=== PATIENT | female | born 1990 | race Caucasian/White ===

== ENCOUNTER 2018-06-01 15:40 | Outpatient (CLI) | payer MEDICAID ==
[~2018-06-01] VITALS: Ht 157.5 cm; Wt 83.0 kg
[2018-06-01 17:09] VITALS: Ht 157.5 cm; Wt 83.0 kg
[2018-06-01 17:11] VITALS: BP 100/59; PULSE 86; RESP 18
[2018-06-01] MEDS ORDERED: PREN-93 PO (17:13)
--- NOTE | 2018-06-02 13:35 | PN ---
Triage Information Date/Time late entry for service rendered on 06/01/18 Reason for visit: Uterine contractions Weeks of Gestation 22w3d /Para Diabetes: none Hypertention: none Objective Vital Signs Date Temp Pulse Resp B/P (MAP) Pulse Ox O2 O2 Flow FiO2 Time Delivery Rate 06/01/18 98.6 86 18 100/59 Room Air 17:11 (73) Heart Rate: 140's Heart Rate Comments adequate for GA Contractions: >10 Minutes Apart Results/Medications Results 24 hrs Laboratory Tests Test 06/01/18 16:30 Urine Color YELLOW Urine Clarity SLIGHTLY CLOUDY A Urine pH 6.0 Urine Specific [place] 1.025 Urine Ketones 1+ H Urine Nitrite NEGATIVE Urine Bilirubin NEGATIVE Urine Urobilinogen NEGATIVE Urine Leukocyte Esterase TRACE A Urine Microscopic RBC 0 Urine Microscopic WBC 1 Urine Mucus FEW A Urine Hemoglobin NEGATIVE Urine Glucose NEGATIVE Urine Total Protein NEGATIVE Imaging Results CVL 4.5 MVP 5.5 Disposition: Discharge Assessment/Plan A IUP 22w3d NO PTL P discharge home RTH prn NAI BARKER MD Jun 02, 2018 13:35
== END 2018-06-01 18:30 | disposition home or self-care (01) ==
LOC: OBT 15:40 → L-D 15:42 → OBT 18:30
PROVIDERS: ATTEND Obstetrics & Gynecology
DX: O62.9 Abnormality of forces of labor, unspecified (principal); Z3A.22 22 weeks gestation of pregnancy
CPT/HCPCS: 76815; 76817; 81001; 87086; Z7500; G0463

== ENCOUNTER 2018-06-04 17:08 | Outpatient (CLI) | payer MEDICAID ==
[~2018-06-04] VITALS: Ht 160 cm; Wt 84.8 kg
[~2018-06-04 17:08] MED LIST: PREN-93 PO
[2018-06-04 17:30] VITALS: BP 92/55; PULSE 88; RESP 20
[2018-06-04 17:40] VITALS: Ht 160 cm; Wt 84.8 kg
[2018-06-04] MEDS ORDERED: ACETAMINOPHEN 325 MG TAB PO ONE (18:00)
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
--- NOTE | 2018-06-04 20:22 | TRIAGE ---
OB Triage Datetime Report Generated by CPN: 06/04/2018 20:21 Datetime: 06/04/2018 18:49 Pain Assessment Pain Scale: 6 Pain Assessment Comments: berrios Datetime: 06/04/2018 18:48 Labor Evaluation Frequency: 0 Monitor Mode: External Resting Tone [place]: Relaxed Datetime: 06/04/2018 18:09 Contraction Comments: toco placed on lower abd to monitor for contractions Comments: u/s off Datetime: 06/04/2018 18:03 Labor Evaluation Frequency: 0 Monitor Mode: External Resting Tone [place]: Relaxed Heart Rate FHR Baseline Rate: 140 FHR Baseline Changes: No Baseline Change Variability: Moderate 6-25 bpm Accelerations: 15X15 Decelerations: None Category: Category I Datetime: 06/04/2018 17:20 Assessment Type: Triage Maternal Assessment Level of Consciousness: Fully Conscious DTR's/Clonus: DTRs 2+; No Clonus Headache: Denies Blurred Vision: No Respiratory Effort: Unlabored; Regular Rhythm; Equal Expansion Breath Sounds, Left: Clear and Equal Breath Sounds, Right: Clear and Equal Nausea/Vomiting: Denies RUQ Epigastric Pain: Denies Facial Edema: None Fall Risk Assessment History of Falling: (0) No Secondary Diagnosis: (0) No Ambulatory Aid: (0) Bedrest/Nurse Assist IV Therapy: (0) No Gait: (0) Normal/Bedrest/Immobile Mental Status: (0) Oriented to Own Ability Fall Score: 0 Fall Risk Score Definition: No Risk: No action required Datetime: 06/04/2018 17:19 Time of Arrival: 06/04/2018 17:19 EGA: 22.6 Arrived By: Ambulatory Arrived From: Home Chief Complaint: berrios, pressure Movement: Present Contractions: Occasional Rupture of Membranes: Denies Vaginal Bleeding: None Vaginal Discharge: Denies Recent Sexual Intercouse: Denies Abdominal Trauma: Not Applicable Patient Complaints: Headache Additional Patient Complaints: pressure Time Provider Notified: 06/04/2018 18:10 Provider Notified: hadadian Initial Plan: us, tylenol, urine culture Datetime: 06/01/2018 18:26 Resting Tone [place]: Relaxed Contraction Comments: abdomen palpates soft Heart Rate FHR Baseline Rate: 140 Monitor Mode: External [place] Variability: Minimal - Undetectable to <=5 bpm Accelerations: None Decelerations: Variable Category: Category II Comments: periods of loss of contact Datetime: 06/01/2018 17:16 Assessment Type: Triage Maternal Assessment Level of Consciousness: Fully Conscious Headache: Temporal Blurred Vision: No Respiratory Effort: Unlabored; Regular Rhythm; Equal Expansion Breath Sounds, Left: Clear and Equal Breath Sounds, Right: Clear and Equal Nausea/Vomiting: Present RUQ Epigastric Pain: Denies Lower Extremities Edema: None Degree: None Upper Extremities Edema: None Degree: None Facial Edema: None Fall Risk Assessment History of Falling: (0) No Secondary Diagnosis: (0) No Ambulatory Aid: (0) Bedrest/Nurse Assist IV Therapy: (0) No Gait: (0) Normal/Bedrest/Immobile Mental Status: (0) Oriented to Own Ability Fall Score: 0 Fall Risk Score Definition: No Risk: No action required Datetime: 06/01/2018 17:00 Resting Tone [place]: Relaxed Contraction Comments: abdomen palpates soft Heart Rate FHR Baseline Rate: 150 Monitor Mode: External [place] Variability: Minimal - Undetectable to <=5 bpm Accelerations: 10X10 Decelerations: Variable Category: Category II Pain Assessment Pain Scale: 5 Pain Presence: Intermittent Pain Type: Cramping Pain Location: Abdomen Datetime: 06/01/2018 16:37 Time of Arrival: 06/01/2018 16:37 EGA: 22.3 Arrived By: Ambulatory Arrived From: Dr. Nava Movement: Present Contractions: Irregular Rupture of Membranes: Unsure Vaginal Bleeding: None Vaginal Discharge: Denies Recent Sexual Intercouse: Denies Abdominal Trauma: Not Applicable Patient Complaints: Other Additional Patient Complaints: Tightening Time Provider Notified: 06/01/2018 17:10 Provider Notified: Isabel Initial Plan: AZALIA Freeman, Sophie
== END 2018-06-04 20:00 | disposition home or self-care (01) ==
LOC: OBT 17:08 → L-D 17:09 → OBT 20:00
PROVIDERS: ATTEND Obstetrics & Gynecology
DX: O47.02 False labor before 37 completed weeks of gestation, second trimester (principal); O26.892 Other specified pregnancy related conditions, second trimester; R51 Headache; Z3A.22 22 weeks gestation of pregnancy
CPT/HCPCS: 76818; 87086; Z7500; Z7610; G0463

== ENCOUNTER 2018-06-29 12:59 | Outpatient (CLI) | payer MEDICAID ==
[~2018-06-29] VITALS: Ht 160 cm; Wt 86.5 kg
[2018-06-29 13:05] VITALS: Ht 160 cm; Wt 86.5 kg
[2018-06-29 13:06] VITALS: BP 108/57; PULSE 90; RESP 20
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
== END 2018-06-29 16:15 | disposition home or self-care (01) ==
LOC: OBT 12:59 → L-D 13:02 → OBT 16:15
PROVIDERS: ATTEND Obstetrics & Gynecology
DX: O9A.212 Injury, poisoning and certain other consequences of external causes complicating pregnancy, second trimester (principal); O26.892 Other specified pregnancy related conditions, second trimester; R10.2 Pelvic and perineal pain; Z3A.26 26 weeks gestation of pregnancy
CPT/HCPCS: 76818; 80053; 81003; 85025; 85460; 87086; Z7500; G0463